=== PATIENT | female | born 1980 | race Two or more races ===

== ENCOUNTER 2021-11-23 15:16 | Emergency (ER) | payer MEDICAID ==
[~2021-11-23] VITALS: Ht 162.6 cm; Wt 74.8 kg
[2021-11-23 16:29] LABS: Calcium 8.9 mg/dL (8.5-10.1); Potassium 3.6 mmol/L (3.5-5.1)
[2021-11-23 16:32] LABS: BUN/Creatinine Ratio 10.6; Bilirubin, Total 0.3 mg/dL (0.2-1.0); Total Protein 8.2 g/dL (6.4-8.2)
[2021-11-23 16:41] LABS: White Blood Cell 6.3 10^3/uL (4.4-10.8)
[2021-11-23 16:43] LABS: Hematocrit 26.2 % (36.0-46.0); Mean Corpuscular Hemoglobin 12.3 pg (28.0-32.0); Mean Corpuscular Hgb Conc. 25.8 g/dL (32.0-36.0); Mean Corpuscular Volume 47.8 fL (80.0-100.0); Red Blood Cells 5.49 10^6/uL (4.0-5.20)
[2021-11-23 16:52] LABS: Red Cell Distribution Width 24.4 % (11.8-14.3)
[2021-11-23 16:56] LABS: Hemoglobin 6.8 g/dL (12.2-16.2); INR 0.99 (0.9-1.15)
[2021-11-23 16:57] LABS: Basophils % (manual) 0 (0.0-2.0); Blast Cells 0; Eosinophils % (manual) 0 (0-7); Metamyelocytes % 0; Myelocytes % 0; Promyelocytes % 0; Reactive Lymphocytes 0
[2021-11-23 18:35] LABS: Band Neutrophils % (manual) 1; Lymphocytes % (manual) 22 (10.0-50.0); Monocytes % (manual) 8 (0-12)
[2021-11-23 18:54] VITALS: BP 146/82
[2021-11-23 19:10] VITALS: BP 136/57
[2021-11-23 21:55] VITALS: BP 117/55
== END 2021-11-23 22:09 | disposition home or self-care (01) ==
LOC: ER 15:26
DX: D64.9 Anemia, unspecified (principal); R53.1 Weakness; F17.210 Nicotine dependence, cigarettes, uncomplicated; Z98.51 Tubal ligation status
CPT/HCPCS: 36415; 36430; 80053; 85007; 85027; 85610; 85730; 86850; 86900; 86901; 86920; 99285; P9016

== ENCOUNTER 2023-10-26 16:32 | Emergency (ER) | payer MEDICAID ==
[~2023-10-26] VITALS: Ht 162.6 cm; Wt 71.4 kg
[2023-10-26 18:24] VITALS: BP 118/67; PULSE 81; RESP 15; TEMP 99; O2SAT 99
[2023-10-26] MEDS ORDERED: diphenhdrAMINE HCL 25 MG CAP PO ONE (18:45)
[2023-10-26] MEDS ORDERED: METOCLOPRAMIDE HCL 5MG/ml INJ 2ml VIAL IM ONE (18:45)
[2023-10-26] MEDS ORDERED: KETOROLAC TROMETH 30 MG/ML 1ML VIAL IM ONE ×2 (18:45→19:00)
[2023-10-26] MEDS ORDERED: IBUP1TAB4 PO (21:23)
== END 2023-10-26 22:11 | disposition home or self-care (01) ==
LOC: ER 16:32
DX: M25.562 Pain in left knee (principal); F17.210 Nicotine dependence, cigarettes, uncomplicated; Z98.51 Tubal ligation status
CPT/HCPCS: 29505; 73562; 96372; 99283; J1885